=== PATIENT | female | born 1995 | race African-American/Black ===

== ENCOUNTER 2018-05-14 04:19 | Inpatient (IN) ==
[2018-05-14] MEDS ORDERED: BUTORPHANOL 2 MG/ML VIAL ONE (05:09)
[2018-05-14] MEDS ORDERED: OXYTOCIN/LR 0 UNIT/0 ML BAG IV ONE (05:09)
[2018-05-14] MEDS ORDERED: ONDANSETRON 4 MG/2 ML VIAL ONE (05:09)
[2018-05-14] MEDS ORDERED: BUTORPHANOL 2 MG/ML VIAL IV PRN (05:20)
[2018-05-14] MEDS ORDERED: MEPERIDINE 50 MG/1 ML VIAL IV PRN (05:20)
[2018-05-14] MEDS ORDERED: ONDANSETRON 4 MG/2 ML VIAL IV PRN ×2 (05:20→06:07)
[2018-05-14] MEDS ORDERED: OXYTOCIN/LR 20 UNIT/1,000 ML BAG IV SCH (05:30)
[2018-05-14] MEDS ORDERED: LACTATED RINGERS 1,000 ML IV SCH (05:30)
[2018-05-14 06:03] LABS: Basophils % 0.1 % (0.0-0.8); Hematocrit 33.4 VOL% (35.7-47.0); Hemoglobin 10.8 GM/DL (12.0-16.0); Immature Granulocytes % 0.9 %; Immature Granulocytes Absolute 0.14 #; Lymphocytes % 6.3 % (21.3-54.2); Mean Corpuscular HGB Conc 32.3 GM/DL (32-36); Mean Corpuscular Hemoglobin 26 PG (27-34); Mean Corpuscular Volume 81.1 FL (87-102); Mean Platelet Volume 10.8 FL (9.6-12.0); Monocytes # 0.4 10*3/uL (0.11-0.8); Monocytes % 2.5 % (1.7-12.7); Neutrophils # 13.6 10*3/uL (1.4-7.4); Neutrophils % 90.2 % (38.7-73.9); Platelet Count 303 T/CUMM (130-400); Red Blood Count 4.12 MC/CUMM (3.8-5.5); White Blood Count 15.1 T/CUMM (4-12)
[2018-05-14] MEDS ORDERED: OXYTOCIN/LR 20 UNIT/1,000 ML BAG IV ONE (06:07)
[2018-05-14] MEDS ORDERED: BENZOCAINE 20%/MENTHOL 0.5% SPRAY 56 GM CAN TOP PRN (06:07)
[2018-05-14] MEDS ORDERED: MEASLES/MUMPS/RUBELLA VACCINE 0.5 ML VIAL SUBCUT ONE (06:07)
[2018-05-14] MEDS ORDERED: DIPH/TET/ACEL PERT BOOSTER VACCINE 0.5 ML VIAL IM ONE (06:07)
[2018-05-14] MEDS ORDERED: WITCH HAZEL PADS 100/JAR TOP PRN (06:07)
[2018-05-14] MEDS ORDERED: HYDROCORTISONE 2.5% RECTAL CREAM 30 GM TUBE TOP PRN (06:07)
[2018-05-14] MEDS ORDERED: oxyCODONE/ACETAMINOPHEN 5-325 MG TABLET PO PRN (06:07)
[2018-05-14] MEDS ORDERED: RHO(D) IMMUNE GLOBULIN 300 MCG SYRINGE IM ONE (06:07)
[2018-05-14] MEDS ORDERED: ACETAMINOPHEN 325 MG TABLET PO PRN (06:07)
[2018-05-14] MEDS ORDERED: BISACODYL 10 MG SUPP RECTAL PRN (06:07)
[2018-05-14] MEDS ORDERED: IBUPROFEN 800 MG TABLET PO PRN (06:07)
[2018-05-14] MEDS ORDERED: LANOLIN 50% CREAM 0.3 OZ TUBE TOP PRN (06:07)
[2018-05-14 06:18] LABS: Alanine Aminotransferase 14 U/L (13-56); Albumin 2.8 G/DL (3.4-5.0); Alkaline Phosphatase 109 U/L (45-117); Aspartate Amino Transferase 9 U/L (0-37); Bilirubin,Total < 0.39 MG/DL (0.2-1.0); Blood Urea Nitrogen 7 MG/DL (7-18); Calcium 8.7 MG/DL (8.5-10.1); Glucose 102 MG/DL (74-106); Osmolality,Calculated 272.7 MOS/KG (273-304); Potassium 3.8 MMOL/L (3.5-5.1); Sodium 138 MMOL/L (136-145); Total Protein 6.8 G/DL (6.4-8.3)
[2018-05-14] MEDS: DOCUSATE SODIUM 100 MG CAPSULE PO SCH (21:19)
[2018-05-15 05:10] LABS: Basophils % 0.2 % (0.0-0.8); Eosinophils # 0.1 10*3/uL (0.0-0.87); Eosinophils % 0.8 % (0.00-10.9); Hematocrit 30.1 VOL% (35.7-47.0); Immature Granulocytes % 0.8 %; Immature Granulocytes Absolute 0.14 #; Lymphocytes # 2.8 10*3/uL (1.4-4.0); Lymphocytes % 16.7 % (21.3-54.2); Mean Corpuscular HGB Conc 33.2 GM/DL (32-36); Mean Corpuscular Hemoglobin 27 PG (27-34); Mean Corpuscular Volume 80.5 FL (87-102); Mean Platelet Volume 11.4 FL (9.6-12.0); Monocytes # 1.3 10*3/uL (0.11-0.8); Monocytes % 7.7 % (1.7-12.7); Neutrophils # 12.3 10*3/uL (1.4-7.4); Neutrophils % 73.8 % (38.7-73.9); Platelet Count 279 T/CUMM (130-400); Red Blood Count 3.74 MC/CUMM (3.8-5.5); Red Cell Distribution Width 14.1 % (9.3-17.3); White Blood Count 16.8 T/CUMM (4-12)
[2018-05-15] MEDS: DOCUSATE SODIUM 100 MG CAPSULE PO SCH ×2 (08:11→21:09)
[2018-05-15] MEDS: oxyCODONE/ACETAMINOPHEN 5-325 MG TABLET PO PRN (14:04)
[2018-05-16] MEDS: oxyCODONE/ACETAMINOPHEN 5-325 MG TABLET PO PRN (00:11)
[2018-05-16] MEDS: DOCUSATE SODIUM 100 MG CAPSULE PO SCH ×2 (05:34→09:10)
[2018-05-16 07:14] VITALS: BP 132/76
== END 2018-05-16 13:35 | disposition home or self-care (01) | DRG 775 ==
LOC: N.LD 04:19 → N.OB 10:50
PROVIDERS: ADMIT Obstetrics & Gynecology; ATTEND Obstetrics & Gynecology

== ENCOUNTER 2020-09-17 04:56 | Inpatient (IN) ==
[2020-09-17] MEDS ORDERED: BUTORPHANOL 2 MG/ML VIAL IV PRN (05:24)
[2020-09-17] MEDS ORDERED: ONDANSETRON 4 MG/2 ML VIAL IV PRN (05:24)
[2020-09-17] MEDS ORDERED: MEPERIDINE 50 MG/1 ML VIAL IV PRN (05:24)
[2020-09-17] MEDS: LACTATED RINGERS 1,000 ML IV SCH ×2 (05:35→08:26)
[2020-09-17 05:55] LABS: Basophils % 0.1 % (0.0-0.8); Eosinophils # 0.1 10*3/uL (0.0-0.87); Eosinophils % 0.5 % (0.00-10.9); Hematocrit 33.3 VOL% (35.7-47.0); Hemoglobin 10.9 GM/DL (12.0-16.0); Immature Granulocytes % 0.8 %; Immature Granulocytes Absolute 0.11 #; Lymphocytes # 2.6 10*3/uL (1.4-4.0); Lymphocytes % 19.5 % (21.3-54.2); Mean Corpuscular HGB Conc 32.7 GM/DL (32-36); Mean Corpuscular Volume 81.8 FL (87-102); Mean Platelet Volume 10.1 FL (9.6-12.0); Monocytes % 6.1 % (1.7-12.7); Platelet Count 338 T/CUMM (130-400); Red Blood Count 4.07 MC/CUMM (3.8-5.5); Red Cell Distribution Width 14.6 % (9.3-17.3); White Blood Count 13.2 T/CUMM (4-12)
[2020-09-17 05:59] LABS: Bacteria,Urine Few /HPF (Few); Bilirubin,Urine Negative (Negative); Blood, Urine Negative (Negative); Glucose,Urine (UA) Negative (Negative); Ketones,Urine 5 mg/dL (Negative); Mucus,Urine Many /LPF (Occasional); Nitrite,Urine Negative (Negative); Protein,Urine Negative; RBC,Urine 2 /HPF (0-4); Squamous Epithelial Cell,Urine Moderate /HPF (0-10); Urine Appearance CLOUDY (Clear); Urine Color Yellow (Yellow); Urine Specific Gravity 1.018 (1.001-1.035); Urine Urobilinogen < 2.0 EU/DL (0.2-1.0); WBC,Urine 7 /HPF (0-6)
[2020-09-17 06:04] LABS: INR 0.9; PT Patient Result 9.8 SECS (9.8-11.9); Partial Thromboplastin Time 25.7 SECS (23.9-33.8)
[2020-09-17 06:13] LABS: Alanine Aminotransferase 10 U/L (13-56); Albumin 2.6 G/DL (3.4-5.0); Alkaline Phosphatase 122 U/L (45-117); Aspartate Amino Transferase 15 U/L (0-37); Bilirubin,Total < 0.39 MG/DL (0.2-1.0); Blood Urea Nitrogen 8 MG/DL (7-18); Calcium 9.1 MG/DL (8.5-10.1); Estimated Glom Filtration Rate 179 ML/MIN; Glucose 86 MG/DL (74-106); Osmolality,Calculated 271.7 MOS/KG (273-304); Total Protein 7.2 G/DL (6.4-8.3)
[2020-09-17] MEDS ORDERED: OXYTOCIN/LR 20 UNIT/1,000 ML BAG IV ONE (06:47)
[2020-09-17 07:50] LABS: Cord Venous Blood HCO3 21.1 MMOL/L; Cord Venous Blood PCO2 37.4 MMHG
[2020-09-17] MEDS: oxyCODONE/ACETAMINOPHEN 5-325 MG TABLET PO PRN ×2 (08:51→18:13)
[2020-09-17] MEDS ORDERED: PROMETHAZINE 25 MG/1 ML VIAL IM PRN (11:22)
[2020-09-17] MEDS: IBUPROFEN 800 MG TABLET PO PRN (13:13)
[2020-09-17] MEDS: DOCUSATE SODIUM 100 MG CAPSULE PO SCH (21:31)
[2020-09-17] MEDS: LABETALOL 200 MG TABLET PO SCH (21:31)
[2020-09-18] MEDS: oxyCODONE/ACETAMINOPHEN 5-325 MG TABLET PO PRN ×2 (05:14→21:16)
[2020-09-18 05:18] LABS: Basophils % 0.3 % (0.0-0.8); Eosinophils # 0.1 10*3/uL (0.0-0.87); Eosinophils % 0.8 % (0.00-10.9); Hematocrit 30.8 VOL% (35.7-47.0); Hemoglobin 9.9 GM/DL (12.0-16.0); Immature Granulocytes % 0.8 %; Immature Granulocytes Absolute 0.12 #; Lymphocytes % 18.8 % (21.3-54.2); Mean Corpuscular HGB Conc 32.1 GM/DL (32-36); Mean Corpuscular Volume 82.6 FL (87-102); Monocytes % 5.5 % (1.7-12.7); Neutrophils % 73.8 % (38.7-73.9); Platelet Count 289 T/CUMM (130-400); Red Blood Count 3.73 MC/CUMM (3.8-5.5); Red Cell Distribution Width 14.7 % (9.3-17.3); White Blood Count 15.9 T/CUMM (4-12)
[2020-09-18] MEDS: DOCUSATE SODIUM 100 MG CAPSULE PO SCH ×2 (08:42→21:16)
[2020-09-18] MEDS: LABETALOL 200 MG TABLET PO SCH (08:42)
[2020-09-18] MEDS: IBUPROFEN 800 MG TABLET PO PRN ×2 (08:42→16:35)
[2020-09-18] MEDS: LABETALOL 100 MG TABLET PO SCH (21:16)
[2020-09-19] MEDS: IBUPROFEN 800 MG TABLET PO PRN (07:45)
[2020-09-19] MEDS: DOCUSATE SODIUM 100 MG CAPSULE PO SCH (07:45)
[2020-09-19 08:41] VITALS: BP 140/80
[2020-09-19] MEDS ORDERED: LABETALOL 200 MG TABLET PO SCH (09:00)
[2020-09-19] MEDS ORDERED: NIFEdipine 10 MG CAPSULE PO ONE (10:16)
[2020-09-19] MEDS: LABETALOL 100 MG TABLET PO SCH (10:51)
== END 2020-09-19 11:40 | disposition home or self-care (01) | DRG 807 ==
LOC: N.LDOUT 04:56 → N.LD 05:25 → N.OB 10:45
PROVIDERS: ADMIT Obstetrics & Gynecology; ATTEND Obstetrics & Gynecology